=== PATIENT | male | born 1980 | race Caucasian/White ===

== ENCOUNTER 2020-03-12 08:38 | Emergency (ER) | payer OTHER ==
--- NOTE | 2020-03-12 09:43 | RADIOLOGY REPORT (SQ) ---
EXAM DESCRIPTION: WRIST LEFT 3 VIEWS IMAGES COMPLETED DATE/TIME: 03/12/2020 9:30 am REASON FOR STUDY: fall, pain and swelling COMPARISON: None. NUMBER OF VIEWS: Three views. TECHNIQUE: AP, lateral, and oblique radiographic images acquired of the left wrist. LIMITATIONS: None. FINDINGS: MINERALIZATION: Normal. BONES: No acute fracture or dislocation. The normal carpal alignment is preserved. SOFT TISSUES: Mild soft tissue swelling along the ulnar aspect of the wrist. OTHER: No other findings. IMPRESSION: Mild soft tissue swelling along the ulnar aspect of the wrist without an associated acut e osseous abnormality. TECHNICAL DOCUMENTATION: JOB ID: [id number] 2010 [employer]- All Rights Reserved Reading location - IP/workstation name: [email or web address]
--- NOTE | 2020-03-12 10:45 | ER Document Report ---
Entered by TUNDE ZEPEDA SCRIBE 03/12/20 1022 Acting as scribe for:VINAYAK SHAW MD ED Hand/Wrist Injury - General Chief Complaint: Arm Injury Stated Complaint: FALL/LEFT WRIST,ARM PAIN Time Seen by Provider: 03/12/20 10:08 Mode of Arrival: Ambulatory Information source: Patient Notes: This 39 year old male patient presents to the ED today with complaints of left wrist pain status post fall that occurred last night. Patient states that he fell on his outstretched left upper extremity going up the stairs. He reports swelling to his wrist this morning and a numbing/tingling sensation to the 4th and 5th digits of his left hand. Denies any other areas of injury. - Related Data Allergies/Adverse Reactions: peanut Allergy (Verified 03/12/20 09:00) Past Medical History - General Information source: Patient - Social History Smoking Status: Never Smoker Cigarette use (# per day): No Chew tobacco use (# tins/day): No Smoking Education Provided: No Frequency of alcohol use: None Family History: Reviewed & Not Pertinent Past Surgical History: Reports: Hx Orthopedic Surgery - L AC separation Review of Systems - Review of Systems Constitutional: No symptoms reported EENT: No symptoms reported Cardiovascular: No symptoms reported Respiratory: No symptoms reported Gastrointestinal: No symptoms reported Genitourinary: No symptoms reported Male Genitourinary: No symptoms reported Musculoskeletal: See HPI, Joint pain Skin: No symptoms reported Hematologic/Lymphatic: No symptoms reported Neurological/Psychological: See HPI, Numbness -: Yes All other systems reviewed and negative Physical Exam - Vital signs Vitals: Temp Pulse Resp BP Pulse Ox 98.2 F 56 L 16 138/95 H 100 03/12/20 08:50 03/12/20 08:50 03/12/20 08:50 03/12/20 08:50 03/12/20 08:50 Interpretation: Normal - General General appearance: Appears well, Alert - HEENT Head: Normocephalic, Atraumatic Eyes: Normal Pupils: PERRL - Respiratory Respiratory status: No respiratory distress Chest status: Nontender Breath sounds: Normal Chest palpation: Normal - Cardiovascular Rhythm: Regular Heart sounds: Normal auscultation Murmur: No Friction rub: No Gallop: None auscultated - Abdominal Inspection: Normal Distension: No distension Bowel sounds: Normal Tenderness: Nontender - Abdomen soft Organomegaly: No organomegaly - Back Back: Normal, Nontender - Extremities General lower extremity: Normal inspection. No: Edema Wrist: Limited ROM - secondary to pain. flexion and extension ROM intact. Lateral movement is limited., Other - Soft tissue swelling on the dorsal ulnar. No crepitus. 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 No: Deformity - Neurological Neuro grossly intact: Yes Orientation: AAOx4 [place] Coma Scale Eye Opening: Spontaneous [place] Coma Scale Verbal: Oriented Nathan Coma Scale Motor: Obeys Commands Nathan Coma Scale Total: 15 - Psychological Associated symptoms: Normal affect, Normal mood - Skin Skin Temperature: Warm Skin Moisture: Dry Skin Color: Normal Course - Re-evaluation Re-evalutation: 03/12/20 10:39 Patient resting comfortably not showing signs of distress. - Vital Signs Vital signs: Temp Pulse Resp BP Pulse Ox 98.2 F 56 L 16 138/95 H 100 03/12/20 08:50 03/12/20 08:50 03/12/20 08:50 03/12/20 08:50 03/12/20 08:50 03/12/20 10:39 Vital signs stable blood pressure is 138/95. - Diagnostic Test Radiology reviewed: Image reviewed, Reports reviewed Radiology results interpreted by me: 03/12/20 10:25 Wrist X-Ray 03/12/20 00:00 IMPRESSION: Mild soft tissue swelling along the ulnar aspect of the wrist without an associated acute osseous abnormality. 03/12/20 10:39 Left wrist plain film x-ray shows mild soft tissue swelling along the ulnar aspect of the wrist no associated osseous abnormality no fracture no dislocation. Discharge - Discharge Clinical Impression: Left wrist sprain Condition: Stable Disposition: HOME, SELF-CARE Additional Instructions: You have a left wrist sprain. No evidence for fracture or any dislocation. There is mild soft tissue swelling. Plan is to have you placed in a splint and follow-up with your primary care physician recommend you take ibuprofen if needed for pain or swelling. Prescriptions: Ibuprofen [Ibu] 800 mg PO TID PRN 7 Days #21 tablet PRN Reason: prn pain/swelling/fever I personally performed the services described in the documentation, reviewed and edited the documentation which was dictated to the scribe in my presence, and it accurately records my words and actions.
[2020-03-12 10:59] VITALS: BP 132/92
== END 2020-03-12 10:58 | disposition home or self-care (01) ==
LOC: ER 08:38
DX: S63.502A Unspecified sprain of left wrist, initial encounter (principal); M25.532 Pain in left wrist; M79.89 Other specified soft tissue disorders; R20.0 Anesthesia of skin; W19.XXXA Unspecified fall, initial encounter
CPT/HCPCS: 99283